=== PATIENT | female | born 1940 | race Caucasian/White ===

== ENCOUNTER 2017-05-12 11:34 | Inpatient (IN) | payer MEDICARE, MEDICAID ==
[2017-05-12 12:02] LABS: CHLORIDE,CL 100 mEq/L (98-106); SODIUM,NA 137 mEq/L (136-145)
[2017-05-12] MEDS ORDERED: Acetaminophen 325 MG Tab PO PRN (13:35)
[2017-05-12] MEDS ORDERED: Lactated Ringers 1,000 ML IV SCH (13:45)
[2017-05-12] MEDS ORDERED: Sodium Chloride 0.9% 10 ML Syringe FLUSH PRN (13:46)
[2017-05-12] MEDS: methylPREDNISolone Sodium Succinate 125 MG/2 ML SDV IVPUSH SCH (14:11)
[2017-05-12] MEDS: Albuterol/Ipratropium 3.0-0.5 MG/3 ML Neb Soln NEB SCH ×3 (14:11→20:41)
[2017-05-12] MEDS: Levofloxacin/Dextrose 5%-Water 500 MG in Premix Bag 1 BAG IV SCH (14:14)
[2017-05-12] MEDS: Enoxaparin 30 MG/0.3 ML Syringe SUBCUT SCH (14:20)
[2017-05-12] MEDS ORDERED: Albuterol 8 GM Inhaler INH PRN (19:40)
[2017-05-12] MEDS ORDERED: Nitroglycerin 0.4 MG Tab.SL SL PRN (19:40)
[2017-05-12] MEDS: Tiotropium Inhaler 18 MCG Inhalation Powder Cap Kit of 5 INH SCH (20:52)
[2017-05-13] MEDS: Levothyroxine 50 MCG Tab PO SCH (06:37)
[2017-05-13] MEDS ORDERED: Pantoprazole 40 MG Tab.CR PO SCH (07:00)
[2017-05-13] MEDS: Trospium 20 MG Tab PO SCH ×2 (07:56→20:08)
[2017-05-13] MEDS: Clopidogrel 75 MG Tab PO SCH (07:56)
[2017-05-13] MEDS: Aspirin 81 MG Tab.EC PO SCH (07:57)
[2017-05-13] MEDS: Atenolol 50 MG Tab PO SCH (07:57)
[2017-05-13] MEDS: Albuterol/Ipratropium 3.0-0.5 MG/3 ML Neb Soln NEB SCH ×4 (07:57→20:08)
[2017-05-13] MEDS ORDERED: Tiotropium Inhaler 18 MCG Inhalation Powder Cap Kit of 5 INH SCH (08:00)
[2017-05-13] MEDS: guaiFENesin 200 MG Tab PO SCH ×3 (10:19→20:09)
[2017-05-13] MEDS: Tiotropium Inhaler 18 MCG Inhalation Powder Cap Kit of 5 INH SCH ×2 (10:28→16:23)
[2017-05-13] MEDS: methylPREDNISolone Sodium Succinate 125 MG/2 ML SDV IVPUSH SCH (11:57)
[2017-05-13] MEDS: Levofloxacin/Dextrose 5%-Water 500 MG in Premix Bag 1 BAG IV SCH (12:02)
[2017-05-13] MEDS: Enoxaparin 30 MG/0.3 ML Syringe SUBCUT SCH (12:03)
--- NOTE | 2017-05-13 12:32 | PCM.PN ---
- General Info Date of Service: 05/13/17 Admission Dx/Problem (Free Text): COPD Exacerbation Acute bronchitis Functional Status: Reports: Pain Controlled, Tolerating Diet, Ambulating - Review of Systems General: Reports: Weakness, Fatigue, Malaise. Denies: Fever HEENT: Reports: Sore Throat, Rhinitis Pulmonary: Reports: Shortness of Breath, Cough, Sputum, Wheezing Cardiovascular: Denies: Chest Pain, Edema, Lightheadedness Gastrointestinal: Denies: Abdominal Pain, Nausea, Vomiting Genitourinary: Reports: No Symptoms Musculoskeletal: Reports: No Symptoms Skin: Reports: No Symptoms Neurological: Reports: No Symptoms Psychiatric: Reports: No Symptoms - Patient Data Vitals - Most Recent: Last Vital Signs Temp 98.3 F 05/13/17 07:35 Pulse 88 05/13/17 07:57 Resp 16 05/13/17 07:35 BP 141/56 H 05/13/17 07:57 Pulse Ox 94 L 05/13/17 07:35 Weight - Most Recent: 149 lb I&O - Last 24 Hours: Intake & Output 05/12/17 05/13/17 05/13/17 22:59 06:59 14:59 Intake Total 450 360 Output Total 200 400 Balance 250 -40 Lab Results Last 24 Hours: Laboratory Results - last 24 hr 05/13/17 05/13/17 Range/Units 07:15 07:15 WBC 9.3 (5.0-10.0) 10^3/uL RBC 4.70 (4.00-5.50) 10^6/uL Hgb 13.3 (12.0-16.0) g/dL Hct 41.9 (37.0-47.0) % MCV 89.1 (82.0-94.0) fL MCH 28.3 (27.0-32.0) pg MCHC 31.7 L (33.0-38.0) g/dL RDW Coeff of [place] 14.2 (11.0-15.0) % Plt Count 239 (150-400) 10^3/uL Neut % (Auto) 88.3 H (35-85) % Lymph % (Auto) 7.7 L (10-55) % [place] % (Auto) 4.0 (0-16) % Eos % (Auto) 0 (0-5) % Baso % (Auto) 0 (0-3) % Neut # (Auto) 8.24 H (1.80-7.00) 10^3/uL Lymph # (Auto) 0.72 L (1.00-4.80) 10^3/uL [place] # (Auto) 0.37 (0.00-0.80) 10^3/uL Eos # (Auto) 0.00 (0.00-0.45) 10^3/uL Baso # (Auto) 0.00 10^3/uL C-Reactive Protein 3.2 H (0.2-0.8) mg/dL [place]uy Results Last 24 Hours: Microbiology 05/12/17 17:30 Gram Stain - Preliminary Sputum - Expectorated Sputum Culture - Preliminary 05/12/17 11:41 Influenza Type A Antigen Screen - Final Nasopharyngeal Swab NEGATIVE INFLUENZA A VIRUS AG Influenza Type B Antigen Screen - Final NEGATIVE INFLUENZA B VIRUS AG Med Orders - Current: Current Medications Acetaminophen (Tylenol) 650 mg PO Q4H PRN PRN Reason: Pain (Mild 1-3)/fever Albuterol (Ventolin Hfa) 0 gm INH Q4H PRN PRN Reason: Dyspnea Albuterol/Ipratropium (Duoneb 3.0-0.5 Mg/3 Ml) 3 ml NEB QIDRT [facility] [place] Last Admin: 05/13/17 11:55 Dose: 3 ml Aspirin (Halfprin) 81 mg PO DAILY [facility] [place] Last Admin: 05/13/17 07:57 Dose: 81 mg Atenolol (Tenormin) 50 mg PO DAILY [facility] [place] Last Admin: 05/13/17 07:57 Dose: 50 mg Clopidogrel Bisulfate (Plavix) 75 mg PO DAILY [facility] [place] Last Admin: 05/13/17 07:56 Dose: 75 mg Enoxaparin Sodium (Lovenox) 30 mg SUBCUT Q24H [facility] [place] Last Admin: 05/13/17 12:03 Dose: 30 mg Guaifenesin (Organ-I Nr) 400 mg PO TID [facility] [place] Last Admin: 05/13/17 10:19 Dose: 400 mg Levofloxacin/Dextrose 500 mg/ (Premix) 100 mls @ 100 mls/hr IV Q24H [facility] [place] Last Admin: 05/13/17 12:02 Dose: 100 mls/hr Levothyroxine Sodium (Synthroid) 25 mcg PO ACBRK [facility] [place] Last Admin: 05/13/17 06:37 Dose: 25 mcg Methylprednisolone Sodium Succinate (Solu-Medrol) 62.5 mg IVPUSH Q24H [facility] [place] Last Admin: 05/13/17 11:57 Dose: 62.5 mg Nitroglycerin (Nitrostat) 0.4 mg SL ASDIRECTED PRN PRN Reason: Chest Pain Pantoprazole Sodium (Protonix) 40 mg PO DAILY@0700 [facility] [place] Last Admin: 05/13/17 06:38 Dose: 40 mg Simvastatin (Zocor) 40 mg PO BEDTIME [facility] [place] Sodium Chloride (Saline Flush) 10 ml FLUSH ASDIRECTED PRN PRN Reason: Keep Vein Open Tiotropium [place] (Spiriva Handihaler) 18 mcg INH 1630 [facility] [place] Trospium (Sanctura) 20 mg PO BID [facility] [place] Last Admin: 05/13/17 07:56 Dose: 20 mg Discontinued Medications Tiotropium [place] (Spiriva Handihaler) mcg INH DAILY [facility] [place] Tiotropium [place] (Spiriva Handihaler) 18 mcg INH DAILY [facility] [place] Last Admin: 05/13/17 10:28 Dose: Not Given - Exam Quality Assessment: Supplemental Oxygen General: Alert, Oriented HEENT: Mucous Membr. Moist/[place] Neck: Supple Lungs: Decreased Breath Sounds, Wheezing Cardiovascular: Regular Rate, Regular Rhythm GI/Abdominal Exam: Normal Bowel Sounds, Soft, Non-Tender Extremities: Normal Inspection, No Pedal Edema Skin: Warm, Dry Neurological: No New Focal Deficit - Problem List & Annotations (1) Acute bronchitis SNOMED Code(s): 46079149 Code(s): J20.9 - ACUTE BRONCHITIS, UNSPECIFIED Status: Acute Priority: High Current Visit: Yes Qualifiers: Bronchitis organism: unspecified organism Qualified Code(s): J20.9 - Acute bronchitis, unspecified (2) COPD exacerbation SNOMED Code(s): 880202854114969 Code(s): J44.1 - CHRONIC OBSTRUCTIVE PULMONARY DISEASE W (ACUTE) EXACERBATION Status: Acute Priority: High Current Visit: Yes - Problem List Review Problem List Initiated/Reviewed/Updated: Yes - My Orders Last 24 Hours: My Active Orders 05/12/17 19:40 Albuterol [Ventolin HFA] 0 gm INH Q4H PRN Nitroglycerin [Nitrostat] 0.4 mg SL ASDIRECTED PRN 05/13/17 07:00 Levothyroxine [Synthroid] 25 mcg PO ACBRK Pantoprazole [ProTONIX] 40 mg PO DAILY@0700 05/13/17 08:00 Aspirin [Halfprin] 81 mg PO DAILY Atenolol [Tenormin] 50 mg PO DAILY Clopidogrel [Plavix] 75 mg PO DAILY Trospium [Sanctura] 20 mg PO BID 05/13/17 09:00 guaiFENesin [Organ-I NR] 400 mg PO TID 05/13/17 16:30 Tiotropium [Spiriva HandiHaler] 18 mcg INH 1630 05/13/17 20:00 Simvastatin [Zocor] 40 mg PO BEDTIME - Assessment Assessment:: COPD Exacerbation Acute Bronchitis - Plan Plan:: Patient states continues to feel weak, short of breath. Is coughing frequently with sputum production. No fevers. Oxygen sats 95% on 2 liters. Tolerating meals. Voiding without difficulty. Labs today show WBC of 9.3, CRP slightly increased to 3.2. Panel 8 stable. Will continue with IV Levaquin, steroids and nebs. Start Mucinex TID. Repeat labs in am. Inappropriate for discharge.
[2017-05-13] MEDS ORDERED: Sennosides 8.6 MG Tab PO PRN (14:30)
[2017-05-13] MEDS: Simvastatin 40 MG Tab PO SCH (20:08)
[2017-05-14] MEDS: Levothyroxine 50 MCG Tab PO SCH (06:31)
[2017-05-14] MEDS: NEXIUM 40 MG PO SCH (06:31)
[2017-05-14] MEDS ORDERED: Codeine/Promethazine 10-6.25 MG/5 ML Syrup 5 ML UD Cup PO PRN (08:05)
[2017-05-14] MEDS: guaiFENesin 200 MG Tab PO SCH ×3 (08:13→19:43)
[2017-05-14] MEDS: Albuterol/Ipratropium 3.0-0.5 MG/3 ML Neb Soln NEB SCH ×4 (08:13→20:28)
[2017-05-14] MEDS: Atenolol 50 MG Tab PO SCH (08:13)
[2017-05-14] MEDS: Trospium 20 MG Tab PO SCH ×2 (08:14→19:43)
[2017-05-14] MEDS: Aspirin 81 MG Tab.EC PO SCH (08:14)
[2017-05-14] MEDS: Clopidogrel 75 MG Tab PO SCH (08:14)
[2017-05-14] MEDS: Levofloxacin/Dextrose 5%-Water 500 MG in Premix Bag 1 BAG IV SCH (12:13)
[2017-05-14] MEDS: methylPREDNISolone Sodium Succinate 125 MG/2 ML SDV IVPUSH SCH (12:16)
[2017-05-14] MEDS: Enoxaparin 30 MG/0.3 ML Syringe SUBCUT SCH (12:17)
[2017-05-14] MEDS: Tiotropium Inhaler 18 MCG Inhalation Powder Cap Kit of 5 INH SCH (16:22)
[2017-05-14] MEDS: Polyethylene Glycol 3350 Powder 17 GM Packet PO SCH (19:43)
[2017-05-14] MEDS: Simvastatin 40 MG Tab PO SCH (19:44)
--- NOTE | 2017-05-14 21:26 | PCM.PN ---
- General Info Date of Service: 05/14/17 Admission Dx/Problem (Free Text): COPD Exacerbation Acute bronchitis Functional Status: Reports: Pain Controlled, Tolerating Diet, Ambulating, Urinating - Review of Systems General: Reports: Weakness, Fatigue. Denies: Fever HEENT: Reports: Rhinitis Pulmonary: Reports: Shortness of Breath, Cough, Wheezing Cardiovascular: Denies: Chest Pain, Edema, Lightheadedness Gastrointestinal: Denies: Abdominal Pain, Nausea, Vomiting Musculoskeletal: Reports: No Symptoms Skin: Reports: No Symptoms Neurological: Reports: No Symptoms - Patient Data Vitals - Most Recent: Last Vital Signs Temp 98.2 F 05/14/17 19:58 Pulse 80 05/14/17 19:58 Resp 18 05/14/17 19:58 BP 166/67 H 05/14/17 19:58 Pulse Ox 95 05/14/17 19:58 Weight - Most Recent: 149 lb I&O - Last 24 Hours: Intake & Output 05/14/17 05/14/17 05/14/17 06:59 14:59 22:59 Intake Total 650 436 750 Output Total 700 200 Balance -50 436 550 Lab Results Last 24 Hours: Laboratory Results - last 24 hr 05/14/17 05/14/17 Range/Units 06:55 06:55 WBC 17.4 H (5.0-10.0) 10^3/uL RBC 4.61 (4.00-5.50) 10^6/uL Hgb 13.0 (12.0-16.0) g/dL Hct 41.3 (37.0-47.0) % MCV 89.6 (82.0-94.0) fL MCH 28.2 (27.0-32.0) pg MCHC 31.5 L (33.0-38.0) g/dL RDW Coeff of [place] 14.6 (11.0-15.0) % Plt Count 283 (150-400) 10^3/uL Neut % (Auto) 88.7 H (35-85) % Lymph % (Auto) 5.9 L (10-55) % [place] % (Auto) 5.4 (0-16) % Eos % (Auto) 0 (0-5) % Baso % (Auto) 0 (0-3) % Neut # (Auto) 15.40 H (1.80-7.00) 10^3/uL Lymph # (Auto) 1.03 (1.00-4.80) 10^3/uL [place] # (Auto) 0.93 H (0.00-0.80) 10^3/uL Eos # (Auto) 0.00 (0.00-0.45) 10^3/uL Baso # (Auto) 0.00 10^3/uL Sodium 136 (136-145) mEq/L Potassium 5.0 (3.5-5.0) mEq/L Chloride 101 (98-106) mEq/L Carbon Dioxide 30 (21-32) mmol/L BUN 19 H D (7-18) mg/dL Creatinine 1.0 (0.6-1.0) mg/dL Est Cr Clr Drug Dosing 37.73 mL/min Estimated GFR (MDRD) 53 L (>=60) mL/min Glucose 146 H (75-99) mg/dL Calcium 9.3 (8.4-10.1) mg/dL C-Reactive Protein 0.9 H (0.2-0.8) mg/dL Cu[place] Results Last 24 Hours: Microbiology 05/12/17 17:30 Gram Stain - Final Sputum - Expectorated Sputum Culture - Final Med Orders - Current: Current Medications Acetaminophen (Tylenol) 650 mg PO Q4H PRN PRN Reason: Pain (Mild 1-3)/fever Albuterol (Ventolin Hfa) 0 gm INH Q4H PRN PRN Reason: Dyspnea Albuterol/Ipratropium (Duoneb 3.0-0.5 Mg/3 Ml) 3 ml NEB QIDRT [facility] Last Admin: 05/14/17 20:28 Dose: 3 ml Aspirin (Halfprin) 81 mg PO DAILY [facility] Last Admin: 05/14/17 08:14 Dose: 81 mg Atenolol (Tenormin) 50 mg PO DAILY [facility] Last Admin: 05/14/17 08:13 Dose: 50 mg Clopidogrel Bisulfate (Plavix) 75 mg PO DAILY [facility] Last Admin: 05/14/17 08:14 Dose: 75 mg Enoxaparin Sodium (Lovenox) 30 mg SUBCUT Q24H [facility] Last Admin: 05/14/17 12:17 Dose: 30 mg Guaifenesin (Organ-I Nr) 400 mg PO TID [facility] Last Admin: 05/14/17 19:43 Dose: 400 mg Levofloxacin/Dextrose 500 mg/ (Premix) 100 mls @ 100 mls/hr IV Q24H [facility] Last Admin: 05/14/17 12:13 Dose: 100 mls/hr Levothyroxine Sodium (Synthroid) 25 mcg PO ACBRK [facility] Last Admin: 05/14/17 06:31 Dose: 25 mcg Methylprednisolone Sodium Succinate (Solu-Medrol) 62.5 mg IVPUSH Q24H [facility] Last Admin: 05/14/17 12:16 Dose: 62.5 mg Nitroglycerin (Nitrostat) 0.4 mg SL ASDIRECTED PRN PRN Reason: Chest Pain Ptom-Nexium 40mg 1 each PO 0700 [facility] Last Admin: 05/14/17 06:31 Dose: 1 each Polyethylene Glycol (Miralax) 17 gm PO DAILY [facility] Last Admin: 05/14/17 19:43 Dose: 17 gm Promethazine HCl/Codeine (Phenergan With Codeine) 10 ml PO Q6H PRN PRN Reason: Cough Senna (Senna) 8.6 mg PO DAILY PRN PRN Reason: Constipation Last Admin: 05/13/17 14:56 Dose: 8.6 mg Simvastatin (Zocor) 40 mg PO BEDTIME [facility] Last Admin: 05/14/17 19:44 Dose: 40 mg Sodium Chloride (Saline Flush) 10 ml FLUSH ASDIRECTED PRN PRN Reason: Keep Vein Open Tiotropium [place] (Spiriva Handihaler) 18 mcg INH 1630 [facility] Last Admin: 05/14/17 16:22 Dose: 1 inhalation Trospium (Sanctura) 20 mg PO BID [facility] Last Admin: 05/14/17 19:43 Dose: 20 mg Discontinued Medications Pantoprazole Sodium (Protonix) 40 mg PO DAILY@0700 [facility] Last Admin: 05/13/17 06:38 Dose: 40 mg Tiotropium [place] (Spiriva Handihaler) mcg INH DAILY [facility] Tiotropium [place] (Spiriva Handihaler) 18 mcg INH DAILY [facility] Last Admin: 05/13/17 10:28 Dose: Not Given - Exam General: Alert, Oriented HEENT: Mucous Membr. Moist/[place] Neck: Supple Lungs: Normal Respiratory Effort, Wheezing Cardiovascular: Regular Rate, Regular Rhythm GI/Abdominal Exam: Normal Bowel Sounds, Soft, Non-Tender Extremities: Normal Inspection, No Pedal Edema Skin: Warm, Dry Neurological: No New Focal Deficit - Problem List & Annotations (1) Acute bronchitis SNOMED Code(s): 19199357 Code(s): J20.9 - ACUTE BRONCHITIS, UNSPECIFIED Status: Acute Priority: High Current Visit: Yes Qualifiers: Bronchitis organism: unspecified organism Qualified Code(s): J20.9 - Acute bronchitis, unspecified (2) COPD exacerbation SNOMED Code(s): 667346829222327 Code(s): J44.1 - CHRONIC OBSTRUCTIVE PULMONARY DISEASE W (ACUTE) EXACERBATION Status: Acute Priority: High Current Visit: Yes - Problem List Review Problem List Initiated/Reviewed/Updated: Yes - My Orders Last 24 Hours: My Active Orders 05/14/17 07:00 Non-Formulary Medication [NF Drug] 1 each PO 0700 05/14/17 08:05 Codeine/Promethazine [Phenergan with Codeine] 10 ml PO Q6H PRN - Assessment Assessment:: COPD Exacerbation Acute Bronchitis - Plan Plan:: Patient states continues to feel weak, short of breath. Is coughing frequently with sputum production. No fevers. Oxygen sats 95% on 2 liters. Tolerating meals. Voiding without difficulty. Labs today show WBC of 9.3, CRP slightly increased to 3.2. Panel 8 stable. Will continue with IV Levaquin, steroids and nebs. Start Mucinex TID. Repeat labs in am. Inappropriate for discharge. 05-14-2017 Patient complains of ongoing weakness related to cough. Continues to be frequent but relates coughing up less sputum now. Wheezing with activity. Sats have been good, weaned off oxygen. Ambulating short distances and tolerating well. Afebrile. Labs stable, WBC up, most likely from steroids as CRP low at 0.9. Encourage ambulation. Prometh with codeine for cough. Reevaluate with discharge possible in the next 24-48 hours.
[2017-05-15] MEDS: NEXIUM 40 MG PO SCH (06:46)
[2017-05-15] MEDS: Levothyroxine 50 MCG Tab PO SCH (06:47)
[2017-05-15] MEDS: guaiFENesin 200 MG Tab PO SCH ×3 (08:04→19:49)
[2017-05-15] MEDS: Albuterol/Ipratropium 3.0-0.5 MG/3 ML Neb Soln NEB SCH ×4 (08:04→20:18)
[2017-05-15] MEDS: Clopidogrel 75 MG Tab PO SCH (08:05)
[2017-05-15] MEDS: Trospium 20 MG Tab PO SCH ×2 (08:05→19:49)
[2017-05-15] MEDS: Aspirin 81 MG Tab.EC PO SCH (08:05)
[2017-05-15] MEDS: Polyethylene Glycol 3350 Powder 17 GM Packet PO SCH (08:52)
[2017-05-15] MEDS: Atenolol 50 MG Tab PO SCH (08:52)
[2017-05-15] MEDS: Enoxaparin 30 MG/0.3 ML Syringe SUBCUT SCH (12:06)
[2017-05-15] MEDS: methylPREDNISolone Sodium Succinate 125 MG/2 ML SDV IVPUSH SCH (12:06)
[2017-05-15] MEDS: Levofloxacin/Dextrose 5%-Water 500 MG in Premix Bag 1 BAG IV SCH (12:07)
--- NOTE | 2017-05-15 12:35 | PCM.PN ---
- General Info Date of Service: 05/15/17 Subjective Update: Patient reports she is feeling much better today. Reports she was up walking in the [place] yesterday without difficulty. O2 saturation > 92% on RA. Functional Status: Reports: Pain Controlled, Tolerating Diet, Ambulating, Urinating. Denies: New Symptoms - Review of Systems General: Reports: No Symptoms HEENT: Reports: No Symptoms Pulmonary: Reports: Shortness of Breath, Cough, Wheezing Cardiovascular: Reports: No Symptoms Gastrointestinal: Reports: No Symptoms Genitourinary: Reports: No Symptoms Neurological: Reports: No Symptoms Psychiatric: Reports: No Symptoms - Patient Data Vitals - Most Recent: Last Vital Signs Temp 97.5 F 05/15/17 08:00 Pulse 84 05/15/17 08:52 Resp 20 05/15/17 08:00 BP 159/54 H 05/15/17 08:52 Pulse Ox 93 L 05/15/17 08:00 Weight - Most Recent: 149 lb I&O - Last 24 Hours: Intake & Output 05/14/17 05/15/17 05/15/17 22:59 06:59 14:59 Intake Total 750 750 Output Total 200 1800 Balance 550 -1050 [place]uy Results Last 24 Hours: Microbiology 05/12/17 17:30 Gram Stain - Final Sputum - Expectorated Sputum Culture - Final Med Orders - Current: Current Medications Acetaminophen (Tylenol) 650 mg PO Q4H PRN PRN Reason: Pain (Mild 1-3)/fever Albuterol (Ventolin Hfa) 0 gm INH Q4H PRN PRN Reason: Dyspnea Albuterol/Ipratropium (Duoneb 3.0-0.5 Mg/3 Ml) 3 ml NEB QIDRT [facility] B[facility]S [facility] Last Admin: 05/15/17 12:06 Dose: 3 ml Aspirin (Halfprin) 81 mg PO DAILY [facility]S [facility] Last Admin: 05/15/17 08:05 Dose: 81 mg Atenolol (Tenormin) 50 mg PO DAILY [facility] 234 [facility]S [facility] Last Admin: 05/15/17 08:52 Dose: 50 mg Clopidogrel Bisulfate (Plavix) 75 mg PO DAILY [facility] 234 [facility]S [facility] Last Admin: 05/15/17 08:05 Dose: 75 mg Enoxaparin Sodium (Lovenox) 30 mg SUBCUT Q24H [facility] 234 B[facility]S [facility] Last Admin: 05/15/17 12:06 Dose: 30 mg Guaifenesin (Organ-I Nr) 400 mg PO TID [facility] 234 [facility]S [facility] Last Admin: 05/15/17 08:04 Dose: 400 mg Levofloxacin/Dextrose 500 mg/ (Premix) 100 mls @ 100 mls/hr IV Q24H [facility] 234 B[facility]S [facility] Last Admin: 05/15/17 12:07 Dose: 100 mls/hr Levothyroxine Sodium (Synthroid) 25 mcg PO ACBRK [facility] 234 B[facility]S AT [facility] Last Admin: 05/15/17 06:47 Dose: 25 mcg Methylprednisolone Sodium Succinate (Solu-Medrol) 62.5 mg IVPUSH Q24H [facility] 234 BEDS [facility] Last Admin: 05/15/17 12:06 Dose: 62.5 mg Nitroglycerin (Nitrostat) 0.4 mg SL ASDIRECTED PRN PRN Reason: Chest Pain Ptom-Nexium 40mg 1 each PO 0700 [facility] 234 [facility]S [facility] Last Admin: 05/15/17 06:46 Dose: 1 each Polyethylene Glycol (Miralax) 17 gm PO DAILY [facility] 234 B[facility]S [facility] Last Admin: 05/15/17 08:52 Dose: 17 gm Promethazine HCl/Codeine (Phenergan With Codeine) 10 ml PO Q6H PRN PRN Reason: Cough Last Admin: 05/14/17 23:45 Dose: 10 ml Senna (Senna) 8.6 mg PO DAILY PRN PRN Reason: Constipation Last Admin: 05/13/17 14:56 Dose: 8.6 mg Simvastatin (Zocor) 40 mg PO BEDTIME [facility] 234 [facility]S [facility] Last Admin: 05/14/17 19:44 Dose: 40 mg Sodium Chloride (Saline Flush) 10 ml FLUSH ASDIRECTED PRN PRN Reason: Keep Vein Open Tiotropium [place] (Spiriva Handihaler) 18 mcg INH 1630 [facility] 234 [facility]S [facility] Last Admin: 05/14/17 16:22 Dose: 1 inhalation Trospium (Sanctura) 20 mg PO BID [facility] 234 B[facility]S [facility] Last Admin: 05/15/17 08:05 Dose: 20 mg Discontinued Medications Pantoprazole Sodium (Protonix) 40 mg PO DAILY@0700 [facility] 234 B[facility]S [facility] Last Admin: 05/13/17 06:38 Dose: 40 mg Tiotropium [place] (Spiriva Handihaler) mcg INH DAILY [facility] 234 BEDS AT [facility] Tiotropium [place] (Spiriva Handihaler) 18 mcg INH DAILY [facility] 234 B[facility]S [facility] Last Admin: 05/13/17 10:28 Dose: Not Given - Exam General: Alert, Oriented HEENT: Pupils Equal, Pupils Reactive, EOMI, Mucous Membr. Moist/[place] Neck: Supple Lungs: Normal Respiratory Effort, Decreased Breath Sounds Cardiovascular: Regular Rate, Regular Rhythm GI/Abdominal Exam: Normal Bowel Sounds, Soft, Non-Tender, No Organomegaly, No Distention, No Abnormal Bruit, No Mass, Pelvis Stable Extremities: Normal Inspection, Normal Range of Motion, Non-Tender, No Pedal Edema, Normal Capillary Refill Neurological: No New Focal Deficit Psy/Mental Status: Alert, Normal Affect, Normal Mood - Problem List & Annotations (1) Acute bronchitis SNOMED Code(s): 95568427 Code(s): J20.9 - ACUTE BRONCHITIS, UNSPECIFIED Status: Acute Priority: High Current Visit: Yes Qualifiers: Bronchitis organism: unspecified organism Qualified Code(s): J20.9 - Acute bronchitis, unspecified (2) COPD exacerbation SNOMED Code(s): 351556889620736 Code(s): J44.1 - CHRONIC OBSTRUCTIVE PULMONARY DISEASE W (ACUTE) EXACERBATION Status: Acute Priority: High Current Visit: Yes - Problem List Review Problem List Initiated/Reviewed/Updated: Yes - Assessment Assessment:: COPD Exacerbation Acute Bronchitis - Plan Plan:: Patient states continues to feel weak, short of breath. Is coughing frequently with sputum production. No fevers. Oxygen sats 95% on 2 liters. Tolerating meals. Voiding without difficulty. Labs today show WBC of 9.3, CRP slightly increased to 3.2. Panel 8 stable. Will continue with IV Levaquin, steroids and nebs. Start Mucinex TID. Repeat labs in am. Inappropriate for discharge. 05-14-2017 Patient complains of ongoing weakness related to cough. Continues to be frequent but relates coughing up less sputum now. Wheezing with activity. Sats have been good, weaned off oxygen. Ambulating short distances and tolerating well. Afebrile. Labs stable, WBC up, most likely from steroids as CRP low at 0.9. Encourage ambulation. Prometh with codeine for cough. Reevaluate with discharge possible in the next 24-48 hours. 05-15-2017 Patient reports her shortness of breath has improved. Cough medicine has helped cough. Sats remained good on room air. Up ambulating in [place] without difficulty. Labs stable, leukocytosis likely from steroids. CRP low. IV infiltrated. Will switch antibiotics and steroids to oral. Probable discharge tomorrow morning.
[2017-05-15] MEDS ORDERED: Levofloxacin 500 MG Tab PO SCH (12:45)
[2017-05-15] MEDS: Levofloxacin 500 MG Tab PO SCH (13:59)
[2017-05-15] MEDS: Tiotropium Inhaler 18 MCG Inhalation Powder Cap Kit of 5 INH SCH (16:25)
[2017-05-15] MEDS: Simvastatin 40 MG Tab PO SCH (19:49)
[2017-05-16] MEDS: Levothyroxine 50 MCG Tab PO SCH (06:51)
[2017-05-16] MEDS: NEXIUM 40 MG PO SCH (06:51)
[2017-05-16] MEDS: guaiFENesin 200 MG Tab PO SCH (07:53)
[2017-05-16] MEDS: Trospium 20 MG Tab PO SCH (07:53)
[2017-05-16] MEDS: Albuterol/Ipratropium 3.0-0.5 MG/3 ML Neb Soln NEB SCH ×2 (07:53→11:45)
[2017-05-16] MEDS: Aspirin 81 MG Tab.EC PO SCH (07:53)
[2017-05-16] MEDS: Clopidogrel 75 MG Tab PO SCH (07:53)
[2017-05-16] MEDS: Atenolol 50 MG Tab PO SCH (07:58)
[2017-05-16 07:59] VITALS: BP 188/75
--- NOTE | 2017-05-16 11:14 | PCM.DCSUM1 ---
Discharge Summary - Hospital Course HPI Initial Comments: Patient is a pleasant 77 year old female who was admitted to the hospital from the clinic on 05/12/2017 for acute bronchitis and COPD exacerbation. Throughout hospital stay patient was treated with IV steroids, IV antibiotics, and nebulizer treatments. Patient also received Mucinex D and cough medicine. Patient's shortness of breath, wheezing, and productive cough improved throughout stay. LS were decreased but clear at time of discharge. Patient was up ambulating in the halls without shortness of breath. She reports she felt like she had much more energy and her cough was less productive at the time of discharge. Labs were normalized, except some leukocytosis likely caused from steroids. Patient will be discharged home on 7 days course of antibiotics, home nebulizer treatments, and prednisone. Discussed that patient may increase her nebulizer use from twice a day to three times a day. - Discharge Data Discharge Date: 05/16/17 Discharge Disposition: Home, Self-Care 01 Condition: Good - Discharge Diagnosis/Problem(s) (1) Acute bronchitis SNOMED Code(s): 14189203 ICD Code: J20.9 - ACUTE BRONCHITIS, UNSPECIFIED Status: Acute Priority: High Qualifiers: Bronchitis organism: unspecified organism Qualified Code(s): J20.9 - Acute bronchitis, unspecified (2) COPD exacerbation SNOMED Code(s): 523615285186022 ICD Code: J44.1 - CHRONIC OBSTRUCTIVE PULMONARY DISEASE W (ACUTE) EXACERBATION Status: Acute Priority: High - Patient Instructions Diet: Heart Healthy Diet Activity: As Tolerated Showering/Bathing: May Shower Notify Provider of: Fever, Increased Pain - Discharge Plan Prescriptions/Med Rec: Levofloxacin [Levaquin] 250 mg PO Q24H 7 Days #7 tablet Prednisone [IJD: predniSONE] 20 mg PO WITHBREAKFAST 5 Days #5 tab Home Medications: Home Meds Albuterol [Proair HFA] 2 puff INH Q4HR PRN 08/02/13 [History] Aspirin [Halfprin] 81 mg PO DAILY 08/02/13 [History] Atenolol [Tenormin] 50 mg PO DAILY 08/02/13 [History] Clopidogrel [Plavix] 75 mg PO DAILY 08/02/13 [History] Esomeprazole [NexIUM] 20 mg PO DAILY 08/02/13 [History] Levothyroxine 25 mcg PO DAILY 08/02/13 [History] Tiotropium [Spiriva Handihaler] 1 puff INH DAILY 08/02/13 [History] Simvastatin [Zocor] 40 mg PO DAILY 08/29/16 [History] Fesoterodine Fumarate [Toviaz] 8 mg PO DAILY 05/12/17 [History] Nitroglycerin [Nitrostat] 1 tab SL ASDIRECTED PRN 05/12/17 [History] Albuterol Sulfate 1 inhalation NEB TID #0 05/16/17 [Rx] Levofloxacin [Levaquin] 250 mg PO Q24H 7 Days #7 tablet 05/16/17 [Rx] Prednisone [IJD: predniSONE] 20 mg PO WITHBREAKFAST 5 Days #5 tab 05/16/17 [Rx] Patient Handouts: Chronic Obstructive Pulmonary Disease Exacerbation, Easy-to- Read, Acute Bronchitis, [id number] Referrals: Cookie Solorio PA-C [Family Provider] - - General Info Date of Service: 05/16/17 Admission Dx/Problem (Free Text: COPD Exacerbation Acute bronchitis Subjective Update: Patient reports she is feeling much better today. Reports cough has improved and has been less productive. Reports she has been up ambulating in the [place] without difficulty. O2 saturation > 92% on RA. Functional Status: Reports: Pain Controlled, Tolerating Diet, Ambulating, Urinating. Denies: New Symptoms - Review of Systems General: Reports: No Symptoms. Denies: Fever, Weakness, Fatigue, Chills HEENT: Reports: No Symptoms Pulmonary: Reports: Cough, Sputum. Denies: Shortness of Breath, Hemoptysis, Wheezing Cardiovascular: Reports: Dyspnea on Exertion. Denies: Chest Pain, Palpitations , Edema, Lightheadedness Gastrointestinal: Reports: No Symptoms Genitourinary: Reports: No Symptoms Musculoskeletal: Reports: No Symptoms Skin: Reports: No Symptoms Neurological: Reports: No Symptoms - Patient Data Vitals - Most Recent: Last Vital Signs Temp 97.7 F 05/16/17 07:59 Pulse 78 05/16/17 07:59 Resp 18 05/16/17 07:59 BP 188/75 H 05/16/17 07:59 Pulse Ox 95 05/16/17 07:59 Weight - Most Recent: 149 lb I&O - Last 24 hours: Intake & Output 05/15/17 05/16/17 05/16/17 22:59 06:59 14:59 Intake Total 1570 700 Output Total 950 1800 Balance 620 -1100 Med Orders - Current: Current Medications Acetaminophen (Tylenol) 650 mg PO Q4H PRN PRN Reason: Pain (Mild 1-3)/fever Albuterol (Ventolin Hfa) 0 gm INH Q4H PRN PRN Reason: Dyspnea Albuterol/Ipratropium (Duoneb 3.0-0.5 Mg/3 Ml) 3 ml NEB QIDRT [facility] Last Admin: 05/16/17 07:53 Dose: 3 ml Aspirin (Halfprin) 81 mg PO DAILY [facility] Last Admin: 05/16/17 07:53 Dose: 81 mg Atenolol (Tenormin) 50 mg PO DAILY [facility] Last Admin: 05/16/17 07:58 Dose: 50 mg Clopidogrel Bisulfate (Plavix) 75 mg PO DAILY [facility] Last Admin: 05/16/17 07:53 Dose: 75 mg Enoxaparin Sodium (Lovenox) 30 mg SUBCUT Q24H [facility] Last Admin: 05/15/17 12:06 Dose: 30 mg Guaifenesin (Organ-I Nr) 400 mg PO TID [facility] Last Admin: 05/16/17 07:53 Dose: 400 mg Levofloxacin (Levaquin) 250 mg PO Q24H [facility] Last Admin: 05/15/17 13:59 Dose: 250 mg Levothyroxine Sodium (Synthroid) 25 mcg PO ACBRK [facility] Last Admin: 05/16/17 06:51 Dose: 25 mcg Nitroglycerin (Nitrostat) 0.4 mg SL ASDIRECTED PRN PRN Reason: Chest Pain Ptom-Nexium 40mg 1 each PO 0700 [facility] Last Admin: 05/16/17 06:51 Dose: 1 each Polyethylene Glycol (Miralax) 17 gm PO DAILY [facility] Last Admin: 05/15/17 08:52 Dose: 17 gm Prednisone (Prednisone) 20 mg PO DAILY@1200 [facility] Promethazine HCl/Codeine (Phenergan With Codeine) 10 ml PO Q6H PRN PRN Reason: Cough Last Admin: 05/14/17 23:45 Dose: 10 ml Senna (Senna) 8.6 mg PO DAILY PRN PRN Reason: Constipation Last Admin: 05/13/17 14:56 Dose: 8.6 mg Simvastatin (Zocor) 40 mg PO BEDTIME [facility] Last Admin: 05/15/17 19:49 Dose: 40 mg Sodium Chloride (Saline Flush) 10 ml FLUSH ASDIRECTED PRN PRN Reason: Keep Vein Open Tiotropium [place] (Spiriva Handihaler) 18 mcg INH 1630 [facility] Last Admin: 05/15/17 16:25 Dose: 1 inhalation Trospium (Sanctura) 20 mg PO BID [facility] Last Admin: 05/16/17 07:53 Dose: 20 mg Discontinued Medications Levofloxacin/Dextrose 500 mg/ (Premix) 100 mls @ 100 mls/hr IV Q24H [facility] Last Admin: 05/15/17 12:07 Dose: 100 mls/hr Levofloxacin (Levaquin) 500 mg PO Q24H [facility] Last Admin: 05/15/17 18:02 Dose: Not Given Methylprednisolone Sodium Succinate (Solu-Medrol) 62.5 mg IVPUSH Q24H [facility] Last Admin: 05/15/17 12:06 Dose: 62.5 mg Pantoprazole Sodium (Protonix) 40 mg PO DAILY@0700 [facility] Last Admin: 05/13/17 06:38 Dose: 40 mg Tiotropium [place] (Spiriva Handihaler) mcg INH DAILY [facility] Tiotropium [place] (Spiriva Handihaler) 18 mcg INH DAILY [facility] Last Admin: 05/13/17 10:28 Dose: Not Given - Exam Quality Assessment: Denies: Supplemental Oxygen General: Reports: Alert, Oriented, No Acute Distress Lungs: Reports: Clear to Auscultation, Normal Respiratory Effort, Decreased Breath Sounds. Denies: Crackles, Rales, Rhonchi, Wheezing Cardiovascular: Reports: Regular Rate, Regular Rhythm. Denies: No Murmurs GI/Abdominal Exam: Normal Bowel Sounds, Soft, Non-Tender, No Organomegaly, No Distention, No Abnormal Bruit, No Mass, Pelvis Stable (Female) Exam: Deferred Rectal (Female) Exam: Deferred Back Exam: Reports: Normal Inspection, Full Range of Motion Extremities: Normal Inspection, Normal Range of Motion, Non-Tender, No Pedal Edema, Normal Capillary Refill Skin: Reports: Warm, Dry, Intact Neurological: Reports: No New Focal Deficit Psy/Mental Status: Reports: Alert, Normal Affect, Normal Mood *Q Meaningful Use (DIS) - VTE *Q VTE Criteria *Q: - Stroke *Q Stroke Criteria *Q: - AMI *Q AMI Criteria *Q:
[2017-05-16] MEDS: Levofloxacin 500 MG Tab PO SCH (11:44)
[2017-05-16] MEDS: Polyethylene Glycol 3350 Powder 17 GM Packet PO SCH (11:44)
[2017-05-16] MEDS: Enoxaparin 30 MG/0.3 ML Syringe SUBCUT SCH (11:45)
[2017-05-16] MEDS ORDERED: predniSONE 20 MG Tab PO SCH (12:00)
== END 2017-05-16 13:10 | disposition home or self-care (01) | DRG 191 ==
LOC: CC.CHC 11:34 → CC.MS 11:34 → UNDOADMIN 13:17 → CC.MS 13:17
PROVIDERS: ADMIT Physician Assistant Medical; ATTEND Family Medicine
DX: J44.0 Chronic obstructive pulmonary disease with (acute) lower respiratory infection (principal); I25.810 Atherosclerosis of coronary artery bypass graft(s) without angina pectoris; J20.9 Acute bronchitis, unspecified; J44.1 Chronic obstructive pulmonary disease with (acute) exacerbation; F32.9 Major depressive disorder, single episode, unspecified; E78.5 Hyperlipidemia, unspecified; I10 Essential (primary) hypertension; Z87.09 Personal history of other diseases of the respiratory system; Z87.891 Personal history of nicotine dependence; Z88.7 Allergy status to serum and vaccine; Z79.82 Long term (current) use of aspirin; Z79.899 Other long term (current) drug therapy
CPT/HCPCS: 36415; 71020; 80048; 80053; 85025; 86140; 87070; 87205; 87804; 94640; A9270-GY; J1650; J1956; J2930